=== PATIENT | female | born 1980 | race Caucasian/White ===

== ENCOUNTER 2024-07-30 11:45 | Outpatient (CLI) | payer BC | END 2024-07-30 23:59 | disposition home or self-care (01) | LOC: MRI02 11:45 | PROVIDERS: ATTEND Physical Medicine & Rehabilitation | DX: M50.322 Other cervical disc degeneration at C5-C6 level (principal); M48.02 Spinal stenosis, cervical region; G43.909 Migraine, unspecified, not intractable, without status migrainosus; M25.78 Osteophyte, vertebrae | CPT/HCPCS: 72141 ==